=== PATIENT | female | born 1955 | race Two or more races ===

== ENCOUNTER → 2020-07-20 | Outpatient (CLI) | payer OTHER ==
--- NOTE | 2020-07-20 13:18 | RAD ---
EXAM: Cervical spine, 2 views. HISTORY: Pain. Disability determination. COMPARISON: None. FINDINGS: 2 views of the cervical spine are obtained. There is straightening of cervical lordosis. Th ere is degenerative endplate remodeling and disc space narrowing at C4-C5 and C5-C6. There is left gr eater than right facet arthropathy at the mid cervical levels. IMPRESSION: 1. Degenerative change primarily at the mid cervical levels, described above. 2. No acute osseous finding. Electronically signed by: Agnieszka Iverson MD (07/20/2020 1:16 PM) [id number]
--- NOTE | 2020-07-20 13:18 | RAD ---
EXAM: Lumbar spine, 2 views. HISTORY: Pain. Disability determination. COMPARISON: None. FINDINGS: 2 views lumbar spine are obtained. There are hypoplastic T12 ribs and 5 nonrib-bearing lumb ar segments. There is minimal lumbar dextrocurvature which is likely positional. There is no signific ant listhesis. The vertebral bodies are normal in height and the disc spaces are preserved. There is facet arthropathy at the lumbosacral junction. IMPRESSION: 1. Degenerative facet arthropathy at the lumbosacral junction. 2. No acute osseous finding. Electronically signed by: Agnieszka Iverson MD (07/20/2020 1:15 PM) [id number]
== END ==
LOC: RAD 12:45
PROVIDERS: ATTEND Family Medicine
DX: M47.817 Spondylosis without myelopathy or radiculopathy, lumbosacral region (principal); M47.812 Spondylosis without myelopathy or radiculopathy, cervical region
CPT/HCPCS: 72040; 72100